=== PATIENT | female | born 1965 | race Asian ===

== ENCOUNTER 2016-09-11 06:04 | Observation (INO) | payer OTHER ==
[~2016-09-11] VITALS: Ht 152.4 cm; Wt 72.4 kg
[~2016-09-11 06:04] MED LIST: ACET325T14 PO; AMLO1CAP12 PO; ATOR20TA9 PO; CHOL100015 PO; DRAMAMINE PO; IBUP200C8 PO; LORA10TA3 PO; METF500T4 PO; PANT40TA5 PO
[2016-09-11] MEDS ORDERED: ACETAMINOPHEN 500 MG TABLET PO ONE (06:30)
[2016-09-11] MEDS ORDERED: GABAPENTIN 300 MG CAPSULE PO SCH (06:30)
[2016-09-11] MEDS ORDERED: LACTATED RINGERS 1,000 ML IV SCH (06:30)
[2016-09-11 06:33] VITALS: BP 139/98
[2016-09-11] MEDS ORDERED: MIDAZOLAM 1 MG/ML, 2ML ONE (07:01)
[2016-09-11] MEDS ORDERED: FENTANYL PF 250 MCG/5ML ONE (07:01)
[2016-09-11] MEDS ORDERED: PROPOFOL 10 MG/ML, 50ML ONE (07:05)
[2016-09-11] MEDS ORDERED: SUCCINYLCHOLINE 20 MG/ML, 10ML ONE (07:05)
[2016-09-11] MEDS ORDERED: PROPOFOL 10 MG/ML, 20ML ONE (07:05)
[2016-09-11] MEDS ORDERED: PHENYLEPHRINE 10 MG/ML ONE (07:05)
[2016-09-11] MEDS ORDERED: EPHEDRINE 50 MG/ML, 1ML IVPush PRN (07:30)
[2016-09-11] MEDS ORDERED: ACETAMINOPHEN 325 MG TABLET PO PRN (07:30)
[2016-09-11] MEDS ORDERED: PROMETHAZINE 25 MG/ML, 1ML IV PRN (07:30)
[2016-09-11] MEDS ORDERED: ONDANSETRON 2MG/ML, 2ML IVPush PRN (07:30)
[2016-09-11] MEDS ORDERED: FENTANYL PF 100 MCG/2ML IV PRN (07:30)
[2016-09-11] MEDS ORDERED: HYDROmorphone 1 MG/ML, 1ML IV PRN ×2 (07:30→08:30)
[2016-09-11] MEDS ORDERED: MEPERIDINE/PF 25MG/0.5ML IVPush PRN (07:30)
[2016-09-11] MEDS ORDERED: LABETALOL 5MG/ML, 20ML IV PRN (07:30)
[2016-09-11] MEDS ORDERED: OXYcodone 5 MG/5 ML ORAL.SOL UDC PO PRN (07:30)
[2016-09-11] MEDS ORDERED: hydrALAzine 20 MG/ML, 1ML IV PRN (07:30)
[2016-09-11] MEDS ORDERED: MIDAZOLAM 1 MG/ML, 2ML IV PRN (07:30)
[2016-09-11] MEDS ORDERED: HYDROmorphone 2MG TABLET PO PRN (08:30)
[2016-09-11] MEDS ORDERED: DIPHENHYDRAMINE 50 MG/ML, 1ML IV PRN (08:30)
[2016-09-11] MEDS ORDERED: DIPHENHYDRAMINE 25 MG CAPSULE PO PRN (08:30)
[2016-09-11] MEDS: metFORMIN 500 MG TABLET PO SCH (09:00)
[2016-09-11] MEDS: PANTOPROZOLE 40MG TABLET PO SCH (09:00)
[2016-09-11] MEDS: ATORVASTATIN 20 MG TABLET PO SCH (09:00)
[2016-09-11] MEDS: LORATADINE 10 MG TABLET PO SCH (09:00)
[2016-09-11] MEDS: INSULIN REGULAR 100 UNITS/ML, 3ML VIAL SQ-INSULIN SCH ×3 (11:00→20:52)
[2016-09-11 11:56] LABS: ABG COLLECTION SITE RIGHT BRACHIAL; COLLATERAL CIRCULATION TESTING NORMAL
[2016-09-11 12:28] LABS: BLOOD UREA NITROGEN 8 mg/dL (7-18)
[2016-09-11 12:36] LABS: IS PT STATUS REG ER OR PRE ER? NO
[2016-09-11] MEDS ORDERED: ONDANSETRON 2MG/ML, 2ML ONE (13:36)
[2016-09-11] MEDS: POTASSIUM CHLORIDE 20 MEQ in LACTATED RINGERS 1,000 ML IV SCH (15:00)
[2016-09-11] MEDS: ONDANSETRON 2MG/ML, 2ML IVPush PRN (19:25)
[2016-09-11 20:40] VITALS: BP 104/68
[2016-09-11 23:48] VITALS: BP 97/61
[2016-09-12] MEDS: POTASSIUM CHLORIDE 20 MEQ in LACTATED RINGERS 1,000 ML IV SCH (02:31)
[2016-09-12 04:06] VITALS: BP 101/64
[2016-09-12] MEDS ORDERED: LEVOTHYROXINE 112 MCG TABLET PO SCH (06:00)
[2016-09-12] MEDS: INSULIN REGULAR 100 UNITS/ML, 3ML VIAL SQ-INSULIN SCH ×2 (06:23→11:12)
[2016-09-12 08:02] VITALS: BP 123/68
[2016-09-12] MEDS: ATORVASTATIN 20 MG TABLET PO SCH (09:01)
[2016-09-12] MEDS: metFORMIN 500 MG TABLET PO SCH (09:01)
[2016-09-12] MEDS: LORATADINE 10 MG TABLET PO SCH (09:02)
[2016-09-12] MEDS: PANTOPROZOLE 40MG TABLET PO SCH (09:02)
[2016-09-12] MEDS ORDERED: CALCIUM CARBONATE 500 MG TAB.CHEW PO ONE (09:30)
[2016-09-12] MEDS ORDERED: CALCIUM CARBONATE 500 MG TAB.CHEW PO SCH (10:00)
[2016-09-12] MEDS: ONDANSETRON 2MG/ML, 2ML IVPush PRN (11:13)
[2016-09-12] MEDS ORDERED: CALC300T5 PO (13:15)
[2016-09-12 14:09] VITALS: BP 112/75
[2016-09-12] MEDS ORDERED: HYDR2TAB13 PO (15:37)
[2016-09-12] MEDS ORDERED: LEVO112T2 PO (15:37)
== END 2016-09-12 16:45 | disposition home or self-care (01) ==
LOC: OUT 06:04 → ORIP 08:27 → 4NOR 14:39 → DCLOUNGE 09-12 16:05
PROVIDERS: ADMIT Surgery; ATTEND Surgery
DX: E06.3 Autoimmune thyroiditis (principal); E04.1 Nontoxic single thyroid nodule
CPT/HCPCS: 36415; 36600; 60240; 60512; 71010; 80048; 82040; 82310; 82803; 82962; 83735; 84484; 88307; 93005; 94660; 95865; 95940; 96374; 96375; 96376; C1760; G0378; J0330; J1200; J2250; J2370; J2405; J2704; J3010; J3480; J7120

== ENCOUNTER → 2017-08-17 | Outpatient (CLI) | payer OTHER ==
[~2017-08-17] MED LIST changes: +CALC300T5 PO; +HYDR2TAB29 PO; +LEVO112T2 PO
== END | disposition home or self-care (01) ==
LOC: CFH 11:48
PROVIDERS: ATTEND Obstetrics & Gynecology
DX: D25.9 Leiomyoma of uterus, unspecified (principal); N64.4 Mastodynia; R92.8 Other abnormal and inconclusive findings on diagnostic imaging of breast
CPT/HCPCS: 76642; 76830; 77066

== ENCOUNTER → 2018-10-02 | Outpatient (CLI) | payer OTHER ==
[~2018-10-02] MED LIST changes: +ATOR20TA37 PO; -ATOR20TA9 PO; +LORA-247 PO; -LORA10TA3 PO; +METF500T17 PO; -METF500T4 PO
== END | disposition home or self-care (01) ==
LOC: CARD 09:02
PROVIDERS: ATTEND Genetic Counselor, MS
DX: R07.9 Chest pain, unspecified (principal)
CPT/HCPCS: 93017

== ENCOUNTER → 2018-12-06 | Outpatient (CLI) | payer OTHER | END | disposition home or self-care (01) | LOC: CFH 13:14 | PROVIDERS: ATTEND Genetic Counselor, MS | DX: R92.2 Inconclusive mammogram (principal); Z80.3 Family history of malignant neoplasm of breast | CPT/HCPCS: 76642; 77066; G0279 ==

== ENCOUNTER → 2020-04-20 | Outpatient (CLI) | payer OTHER ==
[~2020-04-20] MED LIST changes: -AMLO1CAP12 PO; +AMLO1CAP13 PO; -PANT40TA5 PO; +PANT40TA6 PO
== END | disposition home or self-care (01) ==
LOC: CFH 14:32
PROVIDERS: ATTEND Genetic Counselor, MS
DX: Z12.31 Encounter for screening mammogram for malignant neoplasm of breast (principal)
CPT/HCPCS: 76641; 77063; 77067

== ENCOUNTER → 2021-01-19 | Outpatient (CLI) | payer OTHER | END | disposition home or self-care (01) | LOC: CFH 14:07 | PROVIDERS: ATTEND Genetic Counselor, MS | DX: N64.4 Mastodynia (principal) | CPT/HCPCS: 77062; 77066; G0279 ==